=== PATIENT | male | born 1955 | race American Indian/Alaskan Native ===

== ENCOUNTER 2019-11-02 09:26 | Day surgery (SDC) | payer MEDICARE ==
[~2019-11-02 09:26] MED LIST: SODIUM CHLORIDE 0.9% 1000 ML 1,000 ML IV SCH
--- NOTE | 2019-11-02 09:52 | Anesthesia Day of Surgery ---
Anesthesia Day of Surgery - Day of Surgery Patient Examined: Yes Patient H&P Reviewed: Yes Patient is NPO: Yes Beta Blockers: Yes (last dose this am) Cardiac Clearance: Yes Pulmonary Clearance: No Duglas's Test: N/A
--- NOTE | 2019-11-02 09:54 | Anesthesia Consultation ---
Anesthesia Consult and Med Hx - Airway Anesthetic Teeth Evaluation: Good ROM Head & Neck: Adequate Mental/Hyoid Distance: Adequate Mallampati Class: Class II Intubation Access Assessment: Probably Good - Pulmonary Exam CTA: Yes - Cardiac Exam Cardiac Exam: RRR - Pre-Operative Health Status ASA Pre-Surgery Classification: ASA3 Proposed Anesthetic Plan: General, MAC - Pulmonary Hx Smoking: No (Former, quit 22 years ago) Hx Respiratory Symptoms: Yes (associated w/ CHF / PE) - Cardiovascular System Hx Hypertension: Yes Hx Coronary Artery Disease: No (h/o CHF) - Central Nervous System Hx Neuromuscular Disorder: No CVA: Yes - Gastrointestinal Hx Ulcer: No - Endocrine Hx Renal Disease: Yes (Stage 3 CKD) Hx Insulin Dependent Diabetes: Yes
[2019-11-02] MEDS ORDERED: DEXTROSE 50% IN WATER (25GM) 50 ML SYRINGE IV ONE (10:00)
--- NOTE | 2019-11-02 10:46 | Short Stay Summary ---
Short Stay Documentation Date of service: 11/02/19 Narrative H&P: The patient presents for diagnostic colonoscopy for positive fecal DNA test ( Eliana). - History Past Medical History: arthritis, diabetes, heart failure, hypertension, stroke Past Surgical History: bowel surgery Social history: no significant social history - Allergies and Medications Current Medications: Allergies No Known Allergies Allergy (Verified 11/02/19 09:08) Home Medications Medication Instructions Recorded Confirmed Last Taken Type Aspirin BABY CHEW TAB 81 mg PO DAILY 11/02/19 11/02/19 11/02/19 History Atenolol 25 mg PO BID 11/02/19 11/02/19 11/02/19 History Atorvastatin 10 mg PO HS 11/02/19 11/02/19 Unknown History Doxazosin 8 mg PO DAILY 11/02/19 11/02/19 11/01/19 History Ferrous Sulfate 325 mg PO DAILY 11/02/19 11/02/19 11/01/19 History ISOSORBIDE MONOnitrate 30 mg PO DAILY 11/02/19 11/02/19 11/01/19 History Nifedipine 60 mg PO DAILY 11/02/19 11/02/19 11/02/19 History Nortriptyline 75 mg PO HS 11/02/19 11/02/19 11/01/19 History Spironolactone 25 mg PO DAILY 11/02/19 11/02/19 11/02/19 History Toujeo Max Solostar 25 units SUB-Q DAILY 11/02/19 11/02/19 11/01/19 History Valsartan 320 mg PO DAILY 11/02/19 11/02/19 11/02/19 History Vitamin D3 1 tab PO DAILY 11/02/19 11/02/19 11/01/19 History amLODIPine 10 mg PO DAILY 11/02/19 11/02/19 11/02/19 History cloNIDine 0.2 mg PO TID 11/02/19 11/02/19 11/02/19 History glipiZIDE 5 mg PO DAILY 11/02/19 11/02/19 11/01/19 History metFORMIN 500 mg PO BID 11/02/19 11/02/19 11/01/19 History Active Medications Sodium Chloride (Nacl 0.9% 1000 Ml) 1,000 mls @ 50 mls/hr IV DIRECT MIKE Last Admin: 11/02/19 09:56 Dose: 50 mls/hr Documented by: - Physical exam General appearance: no acute distress, well-nourished Integumentary: no rash, no growths, no abnormal pigmentation HEENT: Atraumatic, PERRLA, EOMI, Mucous membr. moist/pink Lungs: Clear to auscultation, Normal air movement Breasts: deferred Heart: Regular rate, Normal S1, Normal S2, No murmurs Gastrointestinal: normoactive bowel sounds, no tenderness, no distended, no masses, no guarding, no organomegaly, no obese Male Genitourinary: deferred Rectal Exam: normal exam-external/orifice, no mass Extremities: no ischemia, pulses intact, pulses symmetrical, No edema, normal temperature, normal color, Full ROM Neurological: Normal gait, Normal speech, Strength at 5/5 X4 ext, Normal tone, Sensation intact, Cranial nerves 3-12 NL - Brief post op/procedure progress note Date of procedure: 11/02/19 Findings: see dictation. Estimated blood loss: none Pathology: none - Disposition Condition at discharge: Good Disposition: DC-01 TO HOME OR SELFCARE - Discharge Diagnoses (1) Positive colorectal cancer screening using DNA-based stool test Status: Acute Short Stay Discharge Plan Activity: other (no driving for 24 hours) Weight Bearing Status: Full Weight Bearing Diet: diabetic Follow up with: LORRAINE BRAXTON MD [Primary Care Provider] - 7 Days
[2019-11-02] MEDS ORDERED: PROPOFOL 200 MG/20 ML VIAL IV ONE (10:52)
--- NOTE | 2019-11-02 10:52 | Operative Report ---
Operative Report Operative Report: Date of procedure: 11/02/2019 Preprocedure diagnosis: Positive fecal DNA test (Cologuard) and history minor rectal bleeding. Post procedure diagnosis: Evidence of prior colon surgery Procedure: Colonoscopy to the ileocolonic anastomosis and terminal ileum Endoscopist: Dr. Maldonado Anesthesia: Monitored anesthesia care per anesthesia department Estimated blood loss: 0 Medications: Monitored anesthesia care. See separate report by anesthesia for details. After careful discussion of the nature and purpose of the procedure as well as details of the technique risks benefits and alternatives the patient gave consent. Please see recent history and physical from the office. The patient was placed in the left lateral decubitus position and medicated per anesthesia. A rectal exam was performed sphincter tone was normal there were no masses palpable. The Olympus colonoscope was passed transanally and advanced under continuous direct vision without difficulty to the ileocolonic anastomosis and distal terminal ileum. The colon was well prepared. There was an end-to-side anastomosis. 2 benign appearing strictures were present in the blind chamber of the proximal colon. The scope was advanced to the ileocolonic anastomosis up to 10 cm. The distal ileum appeared normal. The remaining ascending colon was normal. The transverse colon, descending colon, and sigmoid colon were normal. The rectum was normal on forward and retroflexed views. The procedure was well- tolerated overall and the patient was observed in recovery. Conclusions: Evidence of partial right hemicolectomy. No evidence of neoplastic disease. Plan: Repeat colonoscopy in 10 years unless clinically indicated sooner. Signed electronically: Jorge Maldonado M.D.
[2019-11-02 11:43] VITALS: BP 166/86
--- NOTE | 2019-11-02 12:11 | Post Anesthesia Evaluation ---
- Post Anesthesia Evaluation Patient Participated: Yes Airway Patent: Yes Stable Respiratory Function: Yes Nausea/Vomiting: No Temp > 96.8F: Yes Pain Manageable: Yes Adequeate Hydration: Yes Anesthesia Complications: No
== END 2019-11-02 09:27 | disposition home or self-care (01) ==
LOC: GIO 09:26
PROVIDERS: ATTEND Internal Medicine Gastroenterology
DX: R19.5 Other fecal abnormalities (principal); K62.5 Hemorrhage of anus and rectum; I13.0 Hypertensive heart and chronic kidney disease with heart failure and stage 1 through stage 4 chronic kidney disease, or unspecified chronic kidney disease; I50.9 Heart failure, unspecified; N18.3 Chronic kidney disease, stage 3 (moderate); E78.00 Pure hypercholesterolemia, unspecified; I48.91 Unspecified atrial fibrillation; M19.90 Unspecified osteoarthritis, unspecified site; Z79.84 Long term (current) use of oral hypoglycemic drugs; Z79.899 Other long term (current) drug therapy; Z98.890 Other specified postprocedural states
CPT/HCPCS: 45378; 82962; J2704; J7030